=== PATIENT | female | born 1955 | race Caucasian/White ===

== ENCOUNTER → 2018-01-15 | Outpatient (CLI) | payer BC ==
--- NOTE | 2018-01-15 13:45 | Diagnostic Imaging Report ---
Indication: Cough. Preoperative evaluation. Technique: XRAY Chest 2v Comparison: None Findings: Heart size and mediastinal contours are within normal limits. Mild scarring in the apices. There is no focal airspace consolidation. Costophrenic sulci are sharp; no pleural effusion. No pneumothorax. There is mild degenerative change of the spine. No acute osseous abnormality. Peripherally calcified bilateral breast implants noted. IMPRESSION: No radiographic evidence of acute cardiopulmonary disease.
== END | disposition home or self-care (01) ==
LOC: RAD 11:44
DX: Z01.818 Encounter for other preprocedural examination (principal)
CPT/HCPCS: 71046